=== PATIENT | male | born 1995 | race Caucasian/White ===

== ENCOUNTER 2018-01-04 17:21 | Emergency (ER) | payer MEDICAID ==
[~2018-01-04] VITALS: Ht 177.8 cm; Wt 57.0 kg
[2018-01-04] MEDS ORDERED: TETanus/Pertussis (Acell)/Diphther VAC/PF (Tdap-Adult) 0.5ml syringe IM ONE (18:00)
[2018-01-04] MEDS ORDERED: ondansetron 4mg rapidly disintigrating tab PO ONE (18:00)
[2018-01-04] MEDS ORDERED: morphine IR (immed. release) 30mg tablet PO PRN (18:00)
[2018-01-04] MEDS ORDERED: morphine 4 MG/ML inj SYRINge IM ONE (18:20)
[2018-01-04] MEDS ORDERED: NAPR-56 PO (19:29)
[2018-01-04 19:33] VITALS: BP 160/99
== END 2018-01-04 19:40 | disposition home or self-care (01) ==
LOC: ER 17:21
DX: S00.01XA Abrasion of scalp, initial encounter (principal); S00.81XA Abrasion of other part of head, initial encounter; S40.211A Abrasion of right shoulder, initial encounter; Z79.899 Other long term (current) drug therapy; V19.9XXA Pedal cyclist (driver) (passenger) injured in unspecified traffic accident, initial encounter; Y93.89 Activity, other specified; Y92.89 Other specified places as the place of occurrence of the external cause; Y99.8 Other external cause status
CPT/HCPCS: 70450; 73000; 90471; 90715; 96372; 99284; A6449; J2270